=== PATIENT | female | born 1990 | race Caucasian/White ===

== ENCOUNTER 2021-06-05 17:20 | Emergency (ER) | payer MEDICAID ==
[2021-06-05] MEDS ORDERED: Ondansetron 4 MG Tab.DIS PO ONE (17:21)
--- NOTE | 2021-06-05 17:49 | EDM.PDOC ---
<Marcella Bernardo - Last Filed: 06/06/21 06:12> ED HPI GENERAL MEDICAL PROBLEM - General Chief Complaint: Headache Stated Complaint: MIGRAINE Time Seen by Provider: 06/05/21 17:39 - Related Data Allergies Allergy/AdvReac Type Severity Reaction Status Date / Time codeine Allergy Hives Verified 06/05/21 17:36 morphine Allergy Hives Verified 06/05/21 17:36 Sulfa (Sulfonamide Allergy Hives Verified 06/05/21 17:36 Antibiotics) sulfur [From Sulfur-8] Allergy Hives Verified 06/05/21 17:36 Home Meds: Home Meds ClonazePAM [KlonoPIN] 0.5 mg PO Q6HR PRN 06/05/21 [History] Cyclobenzaprine [Flexeril] 10 mg PO Q12HR PRN 06/05/21 [History] Multivitamin 1 each PO DAILY 06/05/21 [History] Course - Re-Assessments/Exams Free Text/Narrative Re-Assessment/Exam: 06/05/21 20:55 Reporting improvement. Feel able to go home to bed and rest tonight. Departure - Departure Time of Disposition: 20:51 Disposition: Home, Self-Care 01 Condition: Good Clinical Impression: Migraine - Discharge Information *PRESCRIPTION DRUG MONITORING PROGRAM REVIEWED*: No *COPY OF PRESCRIPTION DRUG MONITORING REPORT IN PATIENT ANDRAE: No Instructions: Migraine Headache, [id number] Referrals: Whit Sandy MD [Primary Care Provider] - Forms: ED Department Discharge Additional Instructions: Rest Increase fluid intake zofran 4mg ODT one every 4 ours as needed fo nausea clinic follow up if not improving or increased frequency of headaches <Livia Woodward - Last Filed: 06/06/21 07:33> ED HPI GENERAL MEDICAL PROBLEM - General Source of Information: Reports: Patient, RN, RN Notes Reviewed History Limitations: Reports: No Limitations - History of Present Illness INITIAL COMMENTS - FREE TEXT/NARRATIVE: Dary is a 30 y/o female with a history of migraines who presents to the ED via personal vehicle with complaints of headache. The patient reports her symptoms began this morning as a temporal headache, but have since worsened with pain behind her bilateral eyes. She attest to photophobia, phonophobia, and nausea. She denies recent illness, fever, shaking chills, cough, sore throat, vomiting, abdominal pain, or dysuria. The patient reports she takes Nortriptyline daily for control therapy, as well as Clonidine and Flexeril for abortive therapy; she took both of the latter without alleviation of symptoms. She states she is attempting to become and notes her LMP was over one month ago. ED ROS GENERAL - Review of Systems Review Of Systems: Comprehensive ROS is negative, except as noted in HPI. - Physical Exam Exam: See Below Exam Limited By: No Limitations General Appearance: Alert, Mild Distress (Headache pain; Wearing sunglasses for comfort) Eye Exam: Bilateral Eye: EOMI, Normal Inspection, PERRL (4mm), Other (Sunglasses removed for examination) Ears: Normal External Exam, Normal Canal, Hearing Grossly Normal, Normal TMs Nose: Normal Inspection, Normal Mucosa, No Blood Throat/Mouth: Normal Inspection, Normal Lips, Normal Teeth, Normal Gums, Normal Oropharynx, Normal Voice, No Airway Compromise Head Exam: Atraumatic, Normocephalic Neck: Normal Inspection, Supple, Non-Tender, Full Range of Motion. No: Lymphadenopathy (L), Lymphadenopathy (R) Respiratory/Chest: No Respiratory Distress, Lungs Clear, Normal Breath Sounds, No Accessory Muscle Use, Chest Non-Tender Cardiovascular: Normal Peripheral Pulses, Regular Rate, Rhythm, No Edema, No Gallop, No JVD, No Murmur, No Rub GI/Abdominal: Normal Bowel Sounds, Soft, Non-Tender, No Distention, No Abnormal Bruit, No Mass, Pelvis Stable (Female) Exam: Deferred Rectal (Female) Exam: Deferred Neuro Exam (Abbreviated): Alert, Oriented, CN II-XII Intact, Normal Cognition, Normal Gait, No Motor/Sensory Deficits Back Exam: Normal Inspection, Full Range of Motion Extremities: Normal Inspection, Normal Range of Motion, Non-Tender, No Pedal Edema, Normal Capillary Refill Psychiatric: Normal Affect, Normal Mood Skin Exam: Warm, Dry, Intact, Normal Color, No Rash. No: Cyanosis, Ecchymosis, Erythema, Jaundice, Mottled, Pallor, Petechiae Course - Vital Signs Last Recorded V/S: Last Vital Signs Temp 98.0 F 06/05/21 21:05 Pulse 76 06/05/21 21:05 Resp 18 06/05/21 21:05 BP 119/79 06/05/21 21:05 Pulse Ox 96 06/05/21 21:05 - Orders/Labs/Meds Labs: Laboratory Tests 06/05/21 06/05/21 Range/Units 17:30 17:50 Urine Color Yellow (YELLOW) Urine Appearance Clear (CLEAR) Urine pH 7.0 (5.0-9.0) Ur Specific [place] >= 1.030 (1.005-1.030) Urine Protein Negative (NEGATIVE) Urine Glucose (UA) Negative (NEGATIVE) Urine Ketones Negative (NEGATIVE) Urine Occult Blood Negative (NEGATIVE) Urine Nitrite Negative (NEGATIVE) Urine Bilirubin Negative (NEGATIVE) Urine Urobilinogen 0.2 (0.2-1.0) mg/dL Ur Leukocyte Esterase Negative (NEGATIVE) Urine HCG, Qual Negative Meds: Medications Discontinued Medications Generic Name Dose Route Start Last Admin Trade Name Freq PRN Reason Stop Dose Admin Butorphanol Tartrate 1 mg 06/05/21 19:53 06/05/21 20:01 Butorphanol 2 Mg/Ml Sdv IM 06/05/21 19:54 1 mg ONETIME ONE Administration Diphenhydramine HCl 50 mg 06/05/21 18:06 06/05/21 18:14 Diphenhydramine 50 Mg Cap PO 06/05/21 18:07 50 mg ONETIME ONE Administration Sodium Chloride 1,000 mls @ 999 mls/hr 06/05/21 18:47 06/05/21 20:18 Normal Saline IV 06/05/21 19:47 999 mls/hr .BOLUS ONE Administration Ketorolac Tromethamine 30 mg 06/05/21 18:06 06/05/21 18:15 Ketorolac 30 Mg/Ml Sdv IM 06/05/21 18:07 30 mg ONETIME ONE Administration Ondansetron HCl Confirm 06/05/21 21:00 Ondansetron 4 Mg Tab.Dis Administered 06/05/21 21:01 Dose 12 mg .ROUTE .ST-MED ONE - Re-Assessments/Exams Free Text/Narrative Re-Assessment/Exam: 06/05/21 Toradol 30mg IM and Benadryl 50mg PO administered. Patient verbalized no improvement in symptoms. NS 1L bolus initiated. Care of patient transferred to Marcella Bernardo PA-C at 1900. Sepsis Event Note (ED) - Focused Exam Vital Signs: Vital Signs Temp Pulse Resp BP Pulse Ox 06/05/21 21:05 98.0 F 76 18 119/79 96
[2021-06-05] MEDS: diphenhydrAMINE 50 MG Cap PO ONE (18:14)
[2021-06-05] MEDS: Ketorolac 30 MG/ML SDV IM ONE (18:15)
[2021-06-05] MEDS: Butorphanol 2 MG/ML SDV IM ONE (20:01)
[2021-06-05] MEDS: Sodium Chloride 0.9% 1,000 ML IV ONE (20:18)
[2021-06-05] MEDS ORDERED: Ondansetron 4 MG Tab.DIS ONE (21:00)
== END 2021-06-05 21:08 | disposition home or self-care (01) ==
LOC: DL.ED 17:20
DX: G43.909 Migraine, unspecified, not intractable, without status migrainosus (principal); Z88.5 Allergy status to narcotic agent; Z88.2 Allergy status to sulfonamides
CPT/HCPCS: 81003; 81025; 96372; 99283; A9270; J0595; J1885; J7030; Q0163

== ENCOUNTER 2023-04-03 07:41 | Emergency (ER) | payer BC, MEDICAID ==
[2023-04-03] MEDS ORDERED: Sodium Chloride 0.9% 10 ML Syringe FLUSH PRN (07:50)
[2023-04-03] MEDS ORDERED: Ondansetron 4 MG Tab.DIS PO ONE (07:50)
[2023-04-03] MEDS ORDERED: Sodium Chloride 0.9% 500 ML IV ONE (07:52)
[2023-04-03 08:09] LABS: BASOPHILS PERCENT AUTO 0.4 % (0.0-1.0); EOSINOPHILS PERCENT AUTO 1.7 % (1.0-3.0); HEMATOCRIT 37.2 % (37.0-47.0); LYMPHOCYTES PERCENT AUTO 20.6 % (20.5-50.1); MEAN CORPUSCULAR HEMOGLOBIN 29.8 pg (27.0-34.0); MEAN CORPUSCULAR HGB CONC 32.3 g/dL (33.0-35.0); MEAN CORPUSCULAR VOLUME 92.3 fL (80-100); MONOCYTES PERCENT AUTO 5.8 % (2-8); NEUTROPHILS PERCENT AUTO 71.5 % (42.2-75.2); PLATELET COUNT,PLT 214 10^3/uL (150-450); RED BLOOD CELL COUNT 4.03 10^6/uL (4.2-5.4); WHITE BLOOD CELL COUNT,WBC 7.8 10^3/uL (5.0-10.0)
[2023-04-03 08:27] LABS: ALBUMIN 3.2 g/dL (3.4-5.0); ANION GAP 12.9 mEq/L (7-13); BILIRUBIN TOTAL 0.2 mg/dL (0.2-1.0); BUN/CREATININE RATIO 19.1 (No establ ref range); CALCIUM 8.7 mg/dL (8.5-10.1); CREATININE 0.68 mg/dL (0.55-1.02); EST CRCL DRUG DOSING (CG) 101.61 mL/min; POTASSIUM,K 3.9 mmol/L (3.5-5.1); PROTEIN TOTAL,TP 7.6 g/dL (6.4-8.2)
[2023-04-03 08:28] LABS: A/G RATIO 0.73
== END 2023-04-03 09:33 | disposition home or self-care (01) ==
LOC: DL.ED 07:41
DX: O21.9 Vomiting of pregnancy, unspecified (principal); Z88.5 Allergy status to narcotic agent; Z88.1 Allergy status to other antibiotic agents; Z88.2 Allergy status to sulfonamides; Z3A.01 Less than 8 weeks gestation of pregnancy
CPT/HCPCS: 36415; 76817; 80053; 84702; 84703; 85025; 99284; A9270

== ENCOUNTER 2023-12-02 19:57 | Emergency (ER) | payer MEDICAID ==
[2023-12-02 20:26] LABS: BASOPHILS PERCENT AUTO 0.1 % (0.0-1.0); EOSINOPHILS PERCENT AUTO 1.7 % (1.0-3.0); HEMATOCRIT 39.6 % (37.0-47.0); HEMOGLOBIN 12.4 g/dL (12.0-16.0); LYMPHOCYTES PERCENT AUTO 10.6 % (20.5-50.1); MEAN CORPUSCULAR HEMOGLOBIN 27.4 pg (27.0-34.0); MEAN CORPUSCULAR HGB CONC 31.3 g/dL (33.0-35.0); MEAN CORPUSCULAR VOLUME 87.4 fL (80-100); MONOCYTES PERCENT AUTO 4.3 % (2-8); NEUTROPHILS PERCENT AUTO 83.3 % (42.2-75.2); PLATELET COUNT,PLT 206 10^3/uL (150-450); RED BLOOD CELL COUNT 4.53 10^6/uL (4.2-5.4); WHITE BLOOD CELL COUNT,WBC 7.2 10^3/uL (5.0-10.0)
[2023-12-02] MEDS: Sodium Chloride 0.9% 10 ML Syringe FLUSH PRN (20:27)
[2023-12-02] MEDS: Ondansetron 4 MG/2 ML SDV IVPUSH ONE (20:27)
[2023-12-02] MEDS: Sodium Chloride 0.9% 1,000 ML IV ONE (20:28)
[2023-12-02 20:48] LABS: LACTIC ACID 0.9 mmol/L (0.4-2.0)
[2023-12-02 20:50] LABS: CORONAVIRUS COVID-19 NAA NEGATIVE (NEGATIVE); INFLUENZA A NAA NEGATIVE (NEGATIVE); INFLUENZA B NAA NEGATIVE (NEGATIVE); RESPIRATORY SYNCYTIAL VIR NAA NEGATIVE (NEGATIVE)
[2023-12-02 20:53] LABS: A/G RATIO 0.8; ALBUMIN 3.4 g/dL (3.4-5.0); ANION GAP 14.4 mEq/L (7-13); BILIRUBIN TOTAL 0.6 mg/dL (0.2-1.0); BUN/CREATININE RATIO 15.6 (No establ ref range); C-REACTIVE PROTEIN 3.87 ng/dL (<=0.50); CALCIUM 8.6 mg/dL (8.5-10.1); CREATININE 0.77 mg/dL (0.55-1.02); EST CRCL DRUG DOSING (CG) 88.9 mL/min; MAGNESIUM 1.7 mg/dL (1.8-2.4); POTASSIUM,K 3.4 mmol/L (3.5-5.1); PROTEIN TOTAL,TP 7.7 g/dL (6.4-8.2); TSH ULTRASENSITIVE 1.04 uIU/mL (0.36-3.74)
[2023-12-02] MEDS: Ketorolac 30 MG/ML SDV IVPUSH ONE (21:17)
[2023-12-02 21:24] LABS: AMPHETAMINES,URINE NEGATIVE (NEGATIVE); APPEARANCE,URINE CLEAR (CLEAR); BARBITURATES,URINE NEGATIVE (NEGATIVE); BENZODIAZEPINE,URINE NEGATIVE (NEGATIVE); BILIRUBIN,URINE NEGATIVE (NEGATIVE); COLOR,URINE YELLOW (YELLOW); GLUCOSE,URINE NEGATIVE (NEGATIVE); KETONES,URINE NEGATIVE (NEGATIVE); LEUKOCYTE ESTERASE,URINE TRACE (NEGATIVE); MDMA (ECSTASY), URINE NEGATIVE (NEGATIVE); METHADONE,URINE NEGATIVE (NEGATIVE); METHAMPHETAMINES,URINE NEGATIVE (NEGATIVE); NITRITE,URINE NEGATIVE (NEGATIVE); OCCULT BLOOD,URINE TRACE-INTACT (NEGATIVE); OPIATES,URINE NEGATIVE (NEGATIVE); OXYCODONE,URINE NEGATIVE (NEGATIVE); PHENCYCLIDINE,URINE NEGATIVE (NEGATIVE); PROTEIN,URINE NEGATIVE (NEGATIVE); TCA,URINE NEGATIVE (NEGATIVE); UROBILINOGEN,URINE 0.2 mg/dL (0.2-1.0)
[2023-12-02 21:32] LABS: EPITHELIAL CELLS,URINE MANY /HPF (NOT SEEN)
[2023-12-02 21:33] LABS: BACTERIA,URINE MODERATE /HPF ({null, 0-FEW/HPF})
[2023-12-02] MEDS: Nitrofurantoin Monohydrate/Macrocrystalline 100 MG Cap PO ONE (21:41)
[2023-12-02] MEDS: Take Home: Ondansetron 4 MG Tab.DIS, 5 Tab Pack PO ONE (21:55)
== END 2023-12-02 21:54 | disposition home or self-care (01) ==
LOC: DL.ED 19:57
DX: N39.0 Urinary tract infection, site not specified (principal); R11.2 Nausea with vomiting, unspecified; Z86.16 Personal history of COVID-19; Z88.5 Allergy status to narcotic agent; Z88.2 Allergy status to sulfonamides
CPT/HCPCS: 0241U; 36415; 80053; 80305-QW; 81001; 81025; 82150; 83605; 83690; 83735; 84443; 85025; 86140; 87086; 96361; 96374; 96375; 99283; 99284-25; A9270-GY; J1885; J2405; J3490; J7030; Q0162

== ENCOUNTER 2024-09-08 14:21 | Emergency (ER) | payer MEDICAID ==
[2024-09-08] MEDS: Promethazine 25 MG Tab PO ONE (14:50)
[2024-09-08 15:44] LABS: BASOPHILS PERCENT AUTO 0.3 % (0.0-1.0); EOSINOPHILS PERCENT AUTO 0.7 % (1.0-3.0); HEMATOCRIT 40.5 % (37.0-47.0); HEMOGLOBIN 12.6 g/dL (12.0-16.0); LYMPHOCYTES PERCENT AUTO 17.5 % (20.5-50.1); MEAN CORPUSCULAR HEMOGLOBIN 27.8 pg (27.0-34.0); MEAN CORPUSCULAR HGB CONC 31.1 g/dL (33.0-35.0); MEAN CORPUSCULAR VOLUME 89.4 fL (80-100); MONOCYTES PERCENT AUTO 5.7 % (2-8); NEUTROPHILS PERCENT AUTO 75.8 % (42.2-75.2); PLATELET COUNT,PLT 198 10^3/uL (150-450); RED BLOOD CELL COUNT 4.53 10^6/uL (4.2-5.4)
[2024-09-08 16:06] LABS: A/G RATIO 0.8; ALBUMIN 3.5 g/dL (3.4-5.0); ANION GAP 15.3 mEq/L (7-13); BILIRUBIN TOTAL 0.5 mg/dL (0.2-1.0); BUN/CREATININE RATIO 20.8 (No establ ref range); CALCIUM 8.2 mg/dL (8.5-10.1); CREATININE 0.77 mg/dL (0.55-1.02); EST CRCL DRUG DOSING (CG) 88.06 mL/min; POTASSIUM,K 3.3 mmol/L (3.5-5.1); PROTEIN TOTAL,TP 7.8 g/dL (6.4-8.2)
== END 2024-09-08 16:45 | disposition home or self-care (01) ==
LOC: DL.ED 14:21
DX: K52.9 Noninfective gastroenteritis and colitis, unspecified (principal); Z90.49 Acquired absence of other specified parts of digestive tract; Z88.5 Allergy status to narcotic agent; Z88.6 Allergy status to analgesic agent; Z88.2 Allergy status to sulfonamides; Z79.890 Hormone replacement therapy; Z79.899 Other long term (current) drug therapy
CPT/HCPCS: 36415; 80053; 81025; 83690; 85025; 99284; A9270